=== PATIENT | female | born 1950 | race Caucasian/White ===

== ENCOUNTER 2017-11-16 18:13 | Emergency (ER) | payer OTHER ==
[~2017-11-16] VITALS: Ht 167.6 cm; Wt 72.1 kg
[~2017-11-16 18:13] MED LIST: OMEP20CA4; buspirone; dulera; hydrocodone; metformin; proair
[2017-11-16 18:39] VITALS: BP_SYST 121
[2017-11-16] MEDS ORDERED: KETOROLAC TROMETHAMINE 30 MG VIAL IM ONE (18:45)
[2017-11-16 19:28] VITALS: BP_SYST 124
== END 2017-11-16 19:27 | disposition home or self-care (01) ==
LOC: SED 18:13
DX: S20.212A Contusion of left front wall of thorax, initial encounter (principal); M79.662 Pain in left lower leg; M79.602 Pain in left arm; M79.601 Pain in right arm; J44.9 Chronic obstructive pulmonary disease, unspecified; K21.9 Gastro-esophageal reflux disease without esophagitis; E11.9 Type 2 diabetes mellitus without complications; Z88.0 Allergy status to penicillin; Z88.2 Allergy status to sulfonamides; Z88.8 Allergy status to other drugs, medicaments and biological substances; W18.30XA Fall on same level, unspecified, initial encounter; Y93.89 Activity, other specified; Y92.89 Other specified places as the place of occurrence of the external cause; Y99.8 Other external cause status
CPT/HCPCS: 71100; 73590; 96372; 99284; J1885